=== PATIENT | female | born 1960 | race African-American/Black ===

== ENCOUNTER 2018-08-16 16:29 | Emergency (ER) | payer MEDICAID ==
[~2018-08-16] VITALS: Ht 177.8 cm; Wt 117.9 kg
[2018-08-16 16:36] VITALS: BP 139/97
== END 2018-08-16 18:23 | disposition left against medical advice (07) ==
LOC: ER 16:35
DX: R51 Headache (principal); Z53.21 Procedure and treatment not carried out due to patient leaving prior to being seen by health care provider
CPT/HCPCS: 70450

== ENCOUNTER 2018-12-08 11:45 | Emergency (ER) | payer MEDICAID ==
[~2018-12-08] VITALS: Ht 177.8 cm; Wt 113.4 kg
[2018-12-08 12:28] LABS: Basophils # (auto) 0.1 uL; Basophils % (auto) 1.3 % (0.0-2.0); Eosinophils # (auto) 0.1 uL; Eosinophils % (auto) 1.5 % (0.0-7.0); Hematocrit 38.8 % (36.0-46.0); Hemoglobin 13.2 g/dL (12.2-16.2); Lymphocytes # (auto) 1.4 uL; Lymphocytes % (auto) 25.7 % (10.0-50.0); Mean Corpuscular Hemoglobin 29.8 pg (28.0-32.0); Mean Corpuscular Hgb Conc. 34.1 g/dL (32.0-36.0); Mean Corpuscular Volume 87.6 fL (80.0-100.0); Monocytes # (auto) 0.4 uL; Monocytes % (auto) 8.1 % (0.0-12.0); Neutrophils # (auto) 3.4 uL; Neutrophils % (auto) 63.4 % (37.0-80.0); Nucleated Red Blood Cells % 0.1 %; Platelet Count (auto) 301 10^3/uL (140-450); Red Blood Cells 4.42 10^6/uL (4.0-5.20); White Blood Cell 5.4 10^3/uL (4.4-10.8)
[2018-12-08 12:34] VITALS: BP 143/86
[2018-12-08 13:09] LABS: Anion Gap 7 (5-15); Blood Urea Nitrogen 22 mg/dL (7-18); Calcium 9.6 mg/dL (8.5-10.1); Carbon Dioxide 27 mmol/L (21-32); Chloride 108 mmol/L (98-107); Glucose 95 mg/dL (74-106); Potassium 3.8 mmol/L (3.5-5.1); Sodium 142 mmol/L (136-145)
[2018-12-08 13:12] LABS: Alanine Aminotransferase 27 U/L (13-56); Albumin 3.5 g/dL (3.4-5.0); Aspartate Aminotransferase 15 U/L (15-37); BUN/Creatinine Ratio 19.3; GFR African American 63 mL/min; GFR Non-African American 52 mL/min
[2018-12-08 13:16] LABS: Alkaline Phosphatase 116 U/L (45-117); Bilirubin, Total 0.2 mg/dL (0.2-1.0); Total Protein 7.2 g/dL (6.4-8.2)
== END 2018-12-08 14:36 | disposition home or self-care (01) ==
LOC: ER 11:45
DX: I10 Essential (primary) hypertension (principal)
CPT/HCPCS: 36415; 71045; 80053; 84484; 85025; 93005